=== PATIENT | female | born 2005 | race African-American/Black ===

== ENCOUNTER 2023-02-14 10:17 | Emergency (ER) | payer OTHER ==
[~2023-02-14] VITALS: Ht 172.7 cm; Wt 70.5 kg
[2023-02-14 11:03] LABS: APPEARANCE,URINE CLEAR (CLEAR); BILIRUBIN,URINE NEGATIVE (NEGATIVE); GLUCOSE, URINE (UA) NEGATIVE (NEGATIVE); KETONES,URINE TRACE mg/dL (NEGATIVE); LEUKOCYTE ESTERASE ,URINE NEGATIVE (NEGATIVE); NITRATE,URINE NEGATIVE (NEGATIVE); OCCULT BLOOD,URINE SMALL (NEGATIVE); PH,URINE 5.5 (5.0-8.0); PROTEIN,URINE 30-70 mg/dL (NEGATIVE); SPECIFIC GRAVITIY, URINE 1.038 (1.003-1.030); UROBILINOGEN,URINE <=1.0 mg/dL (<=1.0)
[2023-02-14 11:12] LABS: BACTERIA,URINE None Seen /HPF (None Seen); RBC,URINE None Seen /HPF (0-2); SQUAMOUS EPITHELIAL CELL,UR Few /LPF (None Seen)
[2023-02-14 12:53] LABS: EOSINOPHILS % (AUTO) 0.6 % (1.0-6.0); HEMATOCRIT 40.8 % (36-46); HEMOGLOBIN 12.9 g/dL (12.0-16.0); LYMPHOCYTES # (AUTO) 1.8 K/uL (1.0-4.8); LYMPHOCYTES % (AUTO) 22.9 % (22.0-44.0); MEAN CORPUSCULAR HEMOGLOBIN 24.9 pg (26.0-34.0); MEAN CORPUSCULAR HGB CONC 31.6 G/dL (31.0-37.0); MEAN CORPUSCULAR VOLUME 79 fL (80-100); MONOCYTES # (AUTO) 0.8 K/uL (0.1-1.0); MONOCYTES % (AUTO) 10.1 % (2.0-9.0); NEUTROPHILS % (AUTO) 65.4 % (40.0-70.0); PLATELET COUNT (AUTO) 407 K/uL (150-450); RED BLOOD CELL COUNT(AUTO) 5.19 MIL/uL (4.00-5.20); RED CELL DISTRIBUTION WIDTH 15.3 % (11.5-14.5)
[2023-02-14 13:02] LABS: CARBON DIOXIDE 27 mmol/L (22-29); CHLORIDE 98 mmol/L (98-107); POTASSIUM 3.8 mmol/L (3.5-5.1); SODIUM SERUM 132 mmol/L (136-145)
[2023-02-14 13:03] LABS: ANION GAP 7 mmol/L (8-16); CALCIUM, TOTAL 9.7 mg/dL (8.8-10.5); GLOMERULAR FILTR. RATE CALC > 60 mL/min (>60); GLUCOSE,RANDOM 77 mg/dL (70-110)
[2023-02-14 13:08] LABS: ALANINE AMINOTRANSFERASE 20 U/L (12-78); ALBUMIN 4.4 g/dL (3.4-5.0); ALKALINE PHOSPHATASE 96 U/L (46-116); ASPARTATE AMINOTRANSFERASE 19 U/L (15-37); BILIRUBIN,TOTAL 0.5 mg/dL (0.1-1.0); LIPASE 122 U/L (73-393); TOTAL PROTEIN, SERUM 8.6 g/dL (6.4-8.2)
[2023-02-14 14:35] VITALS: TEMP 98.2
[2023-02-14] MEDS ORDERED: ONDANSETRON HCL 4 MG/2 ML VIAL IVP ONE (14:45)
[2023-02-14] MEDS ORDERED: KETOROLAC TROMETHAMINE 30 MG/ML VIAL IVP ONE (14:45)
[2023-02-14] MEDS ORDERED: FAMOTIDINE 20 MG/2 ML VIAL IVP ONE (14:45)
[2023-02-14] MEDS ORDERED: SODIUM CHLORIDE 0.9% 100 ML ONE (14:49)
[2023-02-14] MEDS ORDERED: IOHEXOL 350 MG/ML 100 ML VIAL ONE (14:49)
[2023-02-14] MEDS ORDERED: MORPHINE SULFATE 4 MG/ML SYRINGE IVP ONE (17:30)
[2023-02-14 17:45] VITALS: BP 100/67; PULSE 71; RESP 15
== END 2023-02-14 19:46 | disposition home or self-care (01) ==
LOC: EMS 10:17
DX: R10.30 Lower abdominal pain, unspecified (principal); F17.210 Nicotine dependence, cigarettes, uncomplicated
CPT/HCPCS: 99285; 74177; 96374; 96375; 80053; 81001; 83690; 84703; 85025; 36415; J3490; J1885; J2270; J2405; Q9967; J7050

== ENCOUNTER 2023-06-27 18:55 | Emergency (ER) | payer OTHER ==
[~2023-06-27] VITALS: Ht 170.2 cm; Wt 68.6 kg
[2023-06-27 19:00] VITALS: BP 141/76; PULSE 77; RESP 16; TEMP 98.9
[2023-06-27 19:32] LABS: APPEARANCE,URINE HAZY (CLEAR); BILIRUBIN,URINE NEGATIVE (NEGATIVE); COLOR,URINE YELLOW (YELLOW); GLUCOSE, URINE (UA) NEGATIVE (NEGATIVE); KETONES,URINE 40-60 mg/dL (NEGATIVE); LEUKOCYTE ESTERASE ,URINE MODERATE (NEGATIVE); NITRATE,URINE NEGATIVE (NEGATIVE); OCCULT BLOOD,URINE NEGATIVE (NEGATIVE); PH,URINE 5.5 (5.0-8.0); PROTEIN,URINE 30-70 mg/dL (NEGATIVE); SPECIFIC GRAVITIY, URINE 1.034 (1.003-1.030); UROBILINOGEN,URINE <=1.0 mg/dL (<=1.0)
[2023-06-27 19:43] LABS: SQUAMOUS EPITHELIAL CELL,UR Many /LPF (None Seen)
[2023-06-27 19:44] LABS: RBC,URINE None Seen /HPF (0-2)
[2023-06-27 19:45] LABS: BACTERIA,URINE Few /HPF (None Seen); YEAST,URINE Rare /HPF (None Seen)
[2023-06-27] MEDS ORDERED: DOXYCYCLINE HYCLATE 100 MG TABLET PO ONE (20:15)
[2023-06-27] MEDS ORDERED: LIDOCAINE/PF 1% 2 ML VIAL IM ONE (20:15)
[2023-06-27] MEDS ORDERED: FLUCONAZOLE 150 MG TABLET PO ONE (20:15)
[2023-06-27] MEDS ORDERED: CefTRIAXone SODIUM 1 GM/VIAL IM ONE (20:15)
[2023-06-27] MEDS ORDERED: DOXY-354 PO (21:07)
[2023-06-27] MEDS ORDERED: CEPH-558 PO (21:07)
== END 2023-06-27 23:30 | disposition home or self-care (01) ==
LOC: EMS 18:56
DX: B37.31 Acute candidiasis of vulva and vagina (principal); Z11.3 Encounter for screening for infections with a predominantly sexual mode of transmission; F17.210 Nicotine dependence, cigarettes, uncomplicated
CPT/HCPCS: 99283; 81001; 84703; 87210; 87086; 87186; 87491; 87591; 96372; J0696; J3490; 99284

== ENCOUNTER 2023-08-09 14:09 | Emergency (ER) | payer OTHER ==
[~2023-08-09] VITALS: Ht 170.2 cm; Wt 68.2 kg
[~2023-08-09 14:09] MED LIST: CEPH-558 PO; DOXY-354 PO
[2023-08-09 14:33] VITALS: BP 122/88; PULSE 92; RESP 16; TEMP 98.4
[2023-08-09] MEDS ORDERED: LIDOCAINE/PF 1% 2 ML VIAL IM ONE (15:15)
[2023-08-09] MEDS ORDERED: CefTRIAXone SODIUM 1 GM/VIAL IM ONE (15:15)
[2023-08-09] MEDS ORDERED: METR500 PO (15:26)
== END 2023-08-09 15:41 | disposition home or self-care (01) ==
LOC: EMS 14:09
DX: N76.0 Acute vaginitis (principal); F17.210 Nicotine dependence, cigarettes, uncomplicated
CPT/HCPCS: 99283; 87210; 96372; J0696; J3490